=== PATIENT | male | born 2000 | race African-American/Black ===

== ENCOUNTER 2020-12-04 11:39 | Emergency (ER) | payer MEDICAID, OTHER ==
[~2020-12-04] VITALS: Ht 175.3 cm; Wt 65.8 kg
[2020-12-04 11:47] VITALS: BP 132/75
[2020-12-04 14:06] LABS: Alcohol, Urine < 3.0 mg/dL (0-10); Amphetamine Screen, Urine NEGATIVE (NEGATIVE); Barbiturate Scree,Urine NEGATIVE (NEGATIVE); Benzodiazephine Screen, Urine NEGATIVE (NEGATIVE); Cannabinoid Screen, Urine POSITIVE (NEGATIVE); Cocaine Screen, Urine NEGATIVE (NEGATIVE); Opiate Scree,Urine NEGATIVE (NEGATIVE); Phencyclidine Screen, Urine NEGATIVE (NEGATIVE)
== END 2020-12-04 15:15 | disposition left against medical advice (07) ==
LOC: ER 11:39
DX: F12.10 Cannabis abuse, uncomplicated (principal)
CPT/HCPCS: 80307

== ENCOUNTER 2021-02-11 01:18 | Emergency (ER) | payer MEDICAID ==
[~2021-02-11] VITALS: Ht 175.3 cm; Wt 70.3 kg
[2021-02-11 07:19] VITALS: BP 156/78
[2021-02-11] MEDS ORDERED: IBUPROFEN 800 MG TAB PO ONE (08:00)
== END 2021-02-11 08:06 | disposition home or self-care (01) ==
LOC: ER 01:22
DX: S92.411A Displaced fracture of proximal phalanx of right great toe, initial encounter for closed fracture (principal); F12.10 Cannabis abuse, uncomplicated; W22.8XXA Striking against or struck by other objects, initial encounter; Y93.89 Activity, other specified; Y92.89 Other specified places as the place of occurrence of the external cause; Y99.8 Other external cause status
CPT/HCPCS: 73630